=== PATIENT | female | born 1955 | race Caucasian/White ===

== ENCOUNTER 2017-02-19 14:46 | Outpatient (CLI) | payer BC | END 2017-02-19 14:47 | disposition home or self-care (01) | LOC: CONVCARE 14:46 | PROVIDERS: ATTEND Orthopaedic Surgery | DX: M17.0 Bilateral primary osteoarthritis of knee (principal) | CPT/HCPCS: 73564 ==

== ENCOUNTER 2017-07-16 09:10 | Outpatient (CLI) | payer BC | END 2017-07-16 09:11 | disposition home or self-care (01) | LOC: CONVCARE 09:10 | PROVIDERS: ATTEND Orthopaedic Surgery | DX: Z47.1 Aftercare following joint replacement surgery (principal); Z96.653 Presence of artificial knee joint, bilateral; M16.11 Unilateral primary osteoarthritis, right hip | CPT/HCPCS: 73521; 73562 ==

== ENCOUNTER 2017-09-18 10:21 | Outpatient (CLI) | payer BC | END 2017-09-18 10:22 | disposition home or self-care (01) | LOC: CONVCARE 10:21 | PROVIDERS: ATTEND Orthopaedic Surgery | DX: Z47.1 Aftercare following joint replacement surgery (principal); Z96.641 Presence of right artificial hip joint | CPT/HCPCS: 73501 ==

== ENCOUNTER 2017-10-15 10:55 | Outpatient (CLI) | payer BC | END 2017-10-15 10:56 | disposition home or self-care (01) | LOC: CONVCARE 10:55 | PROVIDERS: ATTEND Orthopaedic Surgery | DX: Z47.1 Aftercare following joint replacement surgery (principal); Z96.641 Presence of right artificial hip joint; M54.9 Dorsalgia, unspecified | CPT/HCPCS: 73501 ==

== ENCOUNTER 2018-02-04 12:14 | Outpatient (CLI) | payer BC | END 2018-02-04 12:15 | disposition home or self-care (01) | LOC: CONVCARE 12:14 | PROVIDERS: ATTEND Orthopaedic Surgery | DX: Z96.653 Presence of artificial knee joint, bilateral (principal) | CPT/HCPCS: 73562 ==

== ENCOUNTER 2018-03-04 13:28 | Outpatient (CLI) | payer BC | END 2018-03-04 13:29 | disposition home or self-care (01) | LOC: CONVCARE 13:28 | PROVIDERS: ATTEND Orthopaedic Surgery | DX: S82.092D Other fracture of left patella, subsequent encounter for closed fracture with routine healing (principal); Z96.653 Presence of artificial knee joint, bilateral | CPT/HCPCS: 73562 ==

== ENCOUNTER 2018-04-15 11:17 | Outpatient (CLI) | payer BC | END 2018-04-15 11:18 | disposition home or self-care (01) | LOC: CONVCARE 11:17 | PROVIDERS: ATTEND Orthopaedic Surgery | DX: M25.562 Pain in left knee (principal); Z96.653 Presence of artificial knee joint, bilateral; S82.002A Unspecified fracture of left patella, initial encounter for closed fracture | CPT/HCPCS: 73562 ==

== ENCOUNTER 2018-05-13 08:50 | Inpatient (IN) | payer BC ==
[2018-05-13] MEDS ORDERED: PROPOFOL 10 MG/ML 200 MG/20 ML EMU IV ONE ×3 (09:20→12:41)
[2018-05-13] MEDS ORDERED: MIDAZOLAM 2 MG/2 ML SOL ONE ×2 (09:20→12:48)
[2018-05-13] MEDS ORDERED: MORPHINE SULFATE 0.5 MG/ML SOL ONE (09:20)
[2018-05-13] MEDS ORDERED: LACTATED RINGERS 1,000 ML IV ONE ×2 (09:45→13:38)
[2018-05-13] MEDS ORDERED: SCOPOLAMINE 1.5MG PATCH TD SCH ×2 (10:00→13:45)
[2018-05-13] MEDS ORDERED: LACTATED RINGERS 1,000 ML IV SCH ×2 (10:45→13:45)
[2018-05-13] MEDS ORDERED: SODIUM CHLORIDE 20 ML 20 ML ONE (10:54)
[2018-05-13] MEDS ORDERED: BUPIVACAINE LIPOSOME 20 ML SUS ONE (10:54)
[2018-05-13] MEDS ORDERED: BUPIVACAINE HCL 0.5% MPF 10 ML SOL ONE (10:58)
[2018-05-13] MEDS ORDERED: BUPIVACAINE/EPI 0.5% 10 ML SOL INFIL ONE (11:00)
[2018-05-13] MEDS ORDERED: SODIUM CHLORIDE 0.9% FLUSH 10 ML SOL IV PRN (11:15)
[2018-05-13] MEDS ORDERED: CEFAZOLIN SODIUM 1 GM PDS ONE ×2 (12:02→21:04)
[2018-05-13] MEDS ORDERED: TRANEXAMIC ACID 100 MG/ML SOL ONE (12:05)
[2018-05-13] MEDS ORDERED: ONDANSETRON HCL 4 MG/2 ML SOL ONE (12:22)
[2018-05-13] MEDS ORDERED: DEXAMETHASONE 20 MG/5 ML (4 MG/ML SOL) ONE (12:22)
[2018-05-13] MEDS ORDERED: CEFAZOLIN SODIUM 1 GM PDS 3 GM in SODIUM CHLORIDE 0.9% 100 ML 100 ML IV ONE (13:38)
[2018-05-13] MEDS ORDERED: SODIUM CHLORIDE 0.9% 1000ML 1,000 ML IV SCH ×2 (13:45→19:00)
[2018-05-13] MEDS ORDERED: ONDANSETRON 4 MG ODT BU PRN (18:54)
[2018-05-13] MEDS ORDERED: BISACODYL 10 MG SUP PR PRN (18:54)
[2018-05-13] MEDS ORDERED: DIPHENHYDRAMINE 25 MG CAP PO PRN (18:54)
[2018-05-13] MEDS ORDERED: FLEET ENEMA PR PRN (18:54)
[2018-05-13] MEDS ORDERED: ALUMINUM/MAGNESIUM 30 ML SUS PO PRN (18:54)
[2018-05-13] MEDS ORDERED: ONDANSETRON HCL 4 MG/2 ML SOL IV PRN (18:54)
[2018-05-13] MEDS ORDERED: MAGNESIUM HYDROXIDE 30 ML SUS PO PRN (18:54)
[2018-05-13] MEDS ORDERED: SODIUM CHLORIDE 0.9% 500 ML 500 ML IV PRN (18:54)
[2018-05-13] MEDS ORDERED: DIAZEPAM 5 MG TAB PO PRN (18:54)
[2018-05-13] MEDS: SODIUM CHLORIDE 0.9% FLUSH 10 ML SOL IV SCH (19:29)
[2018-05-13] MEDS ORDERED: SENNOSIDES A AND B 8.6 MG TAB PO SCH (21:00)
[2018-05-13] MEDS ORDERED: SODIUM CHLORIDE 0.9% 100 ML 100 ML IV ONE (21:04)
[2018-05-13] MEDS: CEFAZOLIN SODIUM 1 GM PDS 3 GM in SODIUM CHLORIDE 0.9% 100 ML 100 ML IV SCH (21:19)
[2018-05-13] MEDS: APAP/OXYCODONE 1 EACH TABLET PO PRN (21:19)
[2018-05-14] MEDS ORDERED: CEFAZOLIN SODIUM 1 GM PDS ONE (02:50)
[2018-05-14] MEDS ORDERED: SODIUM CHLORIDE 0.9% 100 ML 100 ML IV ONE (02:50)
[2018-05-14] MEDS: APAP/OXYCODONE 1 EACH TABLET PO PRN ×3 (03:05→11:32)
[2018-05-14] MEDS: CEFAZOLIN SODIUM 1 GM PDS 3 GM in SODIUM CHLORIDE 0.9% 100 ML 100 ML IV SCH (03:05)
[2018-05-14] MEDS: SODIUM CHLORIDE 0.9% FLUSH 10 ML SOL IV SCH (03:06)
[2018-05-14] MEDS ORDERED: OMEPRAZOLE 20 MG CAPSULE PO SCH (07:00)
[2018-05-14] MEDS ORDERED: PANTOPRAZOLE SODIUM 40 MG ECT PO SCH ×2 (07:00→09:00)
[2018-05-14 07:23] LABS: HEMOGLOBIN 12.3 gm/dl (12.0-15.5); MEAN CORPUSCULAR HEMOGLOBIN 29.1 pg (27.0-32.0); MEAN CORPUSCULAR HGB CONC 33.1 gm/dl (32.0-36.0)
[2018-05-14 08:02] VITALS: BP 128/74; PULSE 69; RESP 12; TEMP 97.4; O2SAT 96
[2018-05-14] MEDS ORDERED: LOSARTAN POTASSIUM 50 MG TAB PO SCH (09:00)
[2018-05-14] MEDS ORDERED: PNEUMOCOCCAL VACCINE 0.5 ML SOL IM ONE (13:01)
[2018-05-14] MEDS ORDERED: INFLUENZA VIRUS VACCINE 0.5 ML SUS IM ONE (13:01)
[2018-05-14] MEDS ORDERED: DULOXETINE HCL 30 MG CAPSULE.DR PO SCH (21:00)
[2018-05-14] MEDS ORDERED: ATORVASTATIN 10 MG TAB PO SCH (21:00)
[2018-05-14] MEDS ORDERED: HYDROXYCHLOROQUINE SULFATE 200 MG TAB PO SCH (21:00)
== END 2018-05-14 14:20 | disposition home or self-care (01) | DRG 302 ==
LOC: ACUTE CARE 08:50
PROVIDERS: ADMIT Orthopaedic Surgery; ATTEND Orthopaedic Surgery
PROC: 0SWD0JZ Revision of Synthetic Substitute in Left Knee Joint, Open Approach (ICD-10-PCS; 2018-05-13)
PROC: F01ZBZZ Bed Mobility Assessment (ICD-10-PCS; 2018-05-13)
PROC: F01L5ZZ Range of Motion and Joint Integrity Assessment of Musculoskeletal System - Lower Back / Lower Extremity (ICD-10-PCS; 2018-05-13)
PROC: 0QBF0ZZ Excision of Left Patella, Open Approach (ICD-10-PCS; principal; 2018-05-13 11:30)
DX: S82.092S Other fracture of left patella, sequela (principal); M06.9 Rheumatoid arthritis, unspecified; G47.33 Obstructive sleep apnea (adult) (pediatric); K21.9 Gastro-esophageal reflux disease without esophagitis; Z96.652 Presence of left artificial knee joint
CPT/HCPCS: 36415; 73560; 85027; 90686; 90732; 94150; 99070; J0690; J1100; J2250; J2274; J2405; A6232; A9270-GY; G0008; J2704; J3490; L1830

== ENCOUNTER 2018-07-01 13:17 | Outpatient (CLI) | payer BC ==
[2018-05-14 08:02] VITALS: O2SAT 96
== END 2018-07-01 13:18 | disposition home or self-care (01) ==
LOC: CONVCARE 13:17
PROVIDERS: ATTEND Orthopaedic Surgery
DX: Z98.890 Other specified postprocedural states (principal)
CPT/HCPCS: 73562

== ENCOUNTER 2018-10-07 13:07 | Outpatient (CLI) | payer BC ==
[2018-05-14 08:02] VITALS: O2SAT 96
== END 2018-10-07 13:08 | disposition home or self-care (01) ==
LOC: CONVCARE 13:07
PROVIDERS: ATTEND Orthopaedic Surgery
DX: Z47.1 Aftercare following joint replacement surgery (principal)
CPT/HCPCS: 73501